=== PATIENT | male | born 1955 | race African-American/Black ===

== ENCOUNTER 2022-10-18 15:36 | Inpatient (IN) | payer MEDICARE, MEDICAID ==
[~2022-10-18] VITALS: Ht 170.2 cm; Wt 55.6 kg
[~2022-10-18 15:36] MED LIST: AMLO10TA55 PO; ASPI-1444 PO; CLOP75TA32 PO; LISI20TA PO; MELO-381 PO; METO-558 PO; SIMV-43 PO; SITA100 PO
[2022-10-18] MEDS ORDERED: NIFE-129 PO (16:06)
[2022-10-18] MEDS ORDERED: NALO4SPR NASAL (16:06)
[2022-10-18] MEDS ORDERED: GABA-529 PO (16:06)
[2022-10-18] MEDS ORDERED: FAMO20 PO (16:06)
[2022-10-18] MEDS ORDERED: HYDR-4069 PO (16:06)
[2022-10-18] MEDS ORDERED: LISI20TA24 PO (16:06)
[2022-10-18 16:51] LABS: BASOPHILS % (AUTO) 0.2 % (0.0-2.0); EOSINOPHILS % (AUTO) 0.1 % (1.0-6.0); HEMATOCRIT 28.5 % (41-53); HEMOGLOBIN 8.8 g/dL (13.5-17.5); LYMPHOCYTES # (AUTO) 0.8 K/uL (1.0-4.8); LYMPHOCYTES % (AUTO) 18.9 % (22.0-44.0); MEAN CORPUSCULAR HEMOGLOBIN 30.7 pg (26.0-34.0); MEAN CORPUSCULAR HGB CONC 30.8 G/dL (31.0-37.0); MEAN CORPUSCULAR VOLUME 99 fL (80-100); MONOCYTES # (AUTO) 0.3 K/uL (0.1-1.0); MONOCYTES % (AUTO) 6.2 % (2.0-9.0); NEUTROPHILS # (AUTO) 3.3 K/uL (1.8-7.7); NEUTROPHILS % (AUTO) 74.6 % (40.0-70.0); PLATELET COUNT (AUTO) 159 K/uL (150-450); RED BLOOD CELL COUNT(AUTO) 2.86 MIL/uL (4.50-5.90); RED CELL DISTRIBUTION WIDTH 13.9 % (11.5-14.5)
[2022-10-18 16:59] LABS: COVID AG,FIA SOURCE NASOPHARYNGEAL
[2022-10-18 17:00] LABS: B-TYPE NATRIURETIC PEPTIDE 5 pg/mL (0-100)
[2022-10-18] MEDS ORDERED: SODIUM CHLORIDE 0.9% 1,000 ML IV ONE (17:00)
[2022-10-18 17:01] LABS: ANION GAP 25 mmol/L (8-16); CALCIUM, TOTAL 8.3 mg/dL (8.8-10.5); CARBON DIOXIDE 17 mmol/L (22-29); CHLORIDE 106 mmol/L (98-107); CREATININE 3.51 mg/dL (0.60-1.30); GLOMERULAR FILTR. RATE CALC 21 mL/min (>60); GLUCOSE,RANDOM 200 mg/dL (70-110); SODIUM SERUM 148 mmol/L (136-145); UREA NITROGEN, BLOOD 74 mg/dL (7-18)
[2022-10-18 17:15] LABS: ALANINE AMINOTRANSFERASE 39 U/L (12-78); ALBUMIN 2.5 g/dL (3.4-5.0); ALKALINE PHOSPHATASE 40 U/L (46-116); ASPARTATE AMINOTRANSFERASE 46 U/L (15-37); BILIRUBIN,TOTAL 0.3 mg/dL (0.1-1.0); LIPASE 72 U/L (73-393); TOTAL PROTEIN, SERUM 5.3 g/dL (6.4-8.2)
[2022-10-18] MEDS ORDERED: SODIUM CHLORIDE 0.9% 500 ML IV ONE (17:15)
[2022-10-18 17:17] LABS: AMMONIA 43 umol/L (11-32)
[2022-10-18 17:21] LABS: LACTIC ACID 12.7 mmol/L (0.4-2.0)
[2022-10-18] MEDS ORDERED: NOREPINEPHRINE 8 MG/D5%-WATER 250 ML IV PRN (17:45)
[2022-10-18] MEDS ORDERED: HYDROmorphone HCL 2 MG/ML SYRINGE IVP ONE ×2 (17:45)
[2022-10-18] MEDS ORDERED: ONDANSETRON HCL 4 MG/2 ML VIAL IVP ONE (17:45)
[2022-10-18 18:57] LABS: INR 1.2 (0.9-1.1); PROTHROMBIN TIME 12.2 SEC (9.4-11.6)
[2022-10-18 19:03] LABS: APPEARANCE,URINE HAZY (CLEAR); BILIRUBIN,URINE NEGATIVE (NEGATIVE); GLUCOSE, URINE (UA) NEGATIVE (NEGATIVE); KETONES,URINE NEGATIVE (NEGATIVE); LEUKOCYTE ESTERASE ,URINE NEGATIVE (NEGATIVE); NITRATE,URINE NEGATIVE (NEGATIVE); OCCULT BLOOD,URINE SMALL (NEGATIVE); PH,URINE 5.5 (5.0-8.0); PROTEIN,URINE 30-70 mg/dL (NEGATIVE); SPECIFIC GRAVITIY, URINE 1.023 (1.003-1.030)
[2022-10-18 19:08] LABS: AMPHET/METH SCREEN,URINE NEGATIVE (NEGATIVE); BARBITURATE SCREEN, URINE NEGATIVE (NEGATIVE); BENZODIAZEPINES SCREEN,URINE NEGATIVE (NEGATIVE); CANNABINOID SCREEN,URINE NEGATIVE (NEGATIVE); COCAINE SCREEN,URINE NEGATIVE (NEGATIVE); METHADONE SCREEN, URINE NEGATIVE (NEGATIVE); OPIATE SCREEN,URINE POSITIVE (NEGATIVE); PHENCYCLIDINE SCREEN,URINE NEGATIVE (NEGATIVE)
[2022-10-18 19:19] LABS: BACTERIA,URINE None Seen /HPF (None Seen); RBC,URINE 0-2 /HPF (0-2); SQUAMOUS EPITHELIAL CELL,UR None Seen /LPF (None Seen); WBC,URINE None Seen /HPF (0-5)
[2022-10-18] MEDS ORDERED: BISACODYL 10 MG RECTAL RECTAL SUPPOSITORY PR PRN (22:30)
[2022-10-18] MEDS ORDERED: MAGNESIUM HYDROXIDE SUSPENSION 30 ML UDCUP PO PRN (22:30)
[2022-10-18] MEDS ORDERED: ALBUTEROL SULFATE 2.5 MG/0.5 ML NEB SOLUTION NEB PRN (22:30)
[2022-10-18] MEDS ORDERED: IPRATROPIUM BROMIDE 0.5 MG/2.5 ML NEB SOLUTION NEB PRN (22:30)
[2022-10-18] MEDS ORDERED: *CLINICAL-LEVOFLOXACIN IVPB DOSING CLINICAL ONE (22:30)
[2022-10-18] MEDS ORDERED: ACETAMINOPHEN 325 MG TABLET PO PRN (22:30)
[2022-10-18] MEDS ORDERED: ZOLPIDEM TARTRATE 5 MG TABLET PO PRN (22:30)
[2022-10-18] MEDS ORDERED: ONDANSETRON HCL 4 MG/2 ML VIAL IVP PRN (22:30)
[2022-10-18] MEDS ORDERED: VANCOMYCIN HCL 1 GM in DEXTROSE 5%-WATER 250 ML IV PRN (23:00)
[2022-10-18] MEDS: SODIUM CHLORIDE 0.45% 1,000 ML IV SCH (23:29)
[2022-10-18] MEDS ORDERED: VANCOMYCIN 1GM/WATER(PEG/NADA) 200 ML IV ONE (23:30)
[2022-10-18] MEDS ORDERED: LEVOFLOXACIN 750 MG/D5% WATER 150 ML IV ONE (23:30)
[2022-10-18] MEDS ORDERED: SODIUM CHLORIDE 0.9% 250 ML IV ONE (23:48)
[2022-10-19] VITALS: BP 96/63
[2022-10-19] MEDS: HEPARIN SODIUM,PORCINE 5,000 UNITS/ML VIAL SQ SCH ×3 (00:50→17:17)
[2022-10-19 04:00] VITALS: BP 120/63
[2022-10-19] MEDS: HYDROCODONE/ACETAMINOPHEN 5-325 MG TABLET PO PRN ×2 (05:47→20:53)
[2022-10-19 07:26] LABS: GLUCOSE,POINT OF CARE 201 MG/DL (70-110)
[2022-10-19 07:57] LABS: CREATININE 3.86 mg/dL (0.60-1.30); POTASSIUM 4.5 mmol/L (3.5-5.1)
[2022-10-19 08:00] VITALS: BP 158/84
[2022-10-19 08:01] LABS: MAGNESIUM 2.1 mg/dL (1.80-2.40); PHOSPHORUS 5.2 mg/dL (2.5-4.9)
[2022-10-19 08:02] LABS: BASOPHILS % (AUTO) 0.1 % (0.0-2.0); EOSINOPHILS % (AUTO) 0.2 % (1.0-6.0); HEMATOCRIT 30.8 % (41-53); HEMOGLOBIN 10.3 g/dL (13.5-17.5); LYMPHOCYTES # (AUTO) 0.8 K/uL (1.0-4.8); LYMPHOCYTES % (AUTO) 21.4 % (22.0-44.0); MEAN CORPUSCULAR HEMOGLOBIN 31.7 pg (26.0-34.0); MEAN CORPUSCULAR HGB CONC 33.4 G/dL (31.0-37.0); MEAN CORPUSCULAR VOLUME 95 fL (80-100); MONOCYTES # (AUTO) 0.7 K/uL (0.1-1.0); MONOCYTES % (AUTO) 17.4 % (2.0-9.0); NEUTROPHILS # (AUTO) 2.3 K/uL (1.8-7.7); NEUTROPHILS % (AUTO) 60.9 % (40.0-70.0); PLATELET COUNT (AUTO) 177 K/uL (150-450); RED BLOOD CELL COUNT(AUTO) 3.25 MIL/uL (4.50-5.90); RED CELL DISTRIBUTION WIDTH 13.1 % (11.5-14.5)
[2022-10-19] MEDS: DOCUSATE SODIUM 100 MG CAPSULE PO SCH ×2 (08:24→20:51)
[2022-10-19] MEDS: PANTOPRAZOLE SODIUM 40 MG/VIAL IVP SCH ×2 (08:25→20:50)
[2022-10-19] MEDS ORDERED: PANTOPRAZOLE SODIUM 40 MG/VIAL IVP SCH (09:00)
[2022-10-19] MEDS ORDERED: NOREPINEPHRINE 8 MG/D5%-WATER 250 ML IV ONE (09:47)
[2022-10-19] MEDS: NOREPINEPHRINE 8 MG/D5%-WATER 250 ML IV PRN ×2 (09:51→23:28)
[2022-10-19] MEDS: SODIUM CHLORIDE 0.45% 1,000 ML IV SCH ×2 (10:41→20:51)
[2022-10-19 12:00] VITALS: BP 134/73
[2022-10-19 18:25] VITALS: BP 106/62
[2022-10-19 23:48] LABS: APPEARANCE,URINE HAZY (CLEAR); BILIRUBIN,URINE NEGATIVE (NEGATIVE); GLUCOSE, URINE (UA) NEGATIVE (NEGATIVE); KETONES,URINE NEGATIVE (NEGATIVE); LEUKOCYTE ESTERASE ,URINE TRACE (NEGATIVE); NITRATE,URINE NEGATIVE (NEGATIVE); OCCULT BLOOD,URINE LARGE (NEGATIVE); PROTEIN,URINE TRACE mg/dL (NEGATIVE); SPECIFIC GRAVITIY, URINE 1.011 (1.003-1.030); UROBILINOGEN,URINE <=1.0 mg/dL (<=1.0)
[2022-10-20] VITALS (7 sets, daily range): BP systolic 105–127; BP diastolic 52–68
[2022-10-20 00:55] LABS: AMORPHOUS SEDIMENT,UR Few /LPF (None Seen); BACTERIA,URINE None Seen /HPF (None Seen); SQUAMOUS EPITHELIAL CELL,UR Few /LPF (None Seen); WBC,URINE 0-2 /HPF (0-5)
[2022-10-20] MEDS ORDERED: SODIUM CHLORIDE 0.9% 250 ML IV ONE (04:50)
[2022-10-20] MEDS: MORPHINE SULFATE 2 MG/ML SYRINGE IVP PRN ×4 (06:05→17:11)
[2022-10-20 06:06] LABS: HEPATITIS C AB (EIA) >11.0 s/co ratio (0.0-0.9)
[2022-10-20 06:28] LABS: CALCIUM, TOTAL 7.9 mg/dL (8.8-10.5); MAGNESIUM 1.8 mg/dL (1.80-2.40); PHOSPHORUS 4.1 mg/dL (2.5-4.9); POTASSIUM 3.9 mmol/L (3.5-5.1); VANCOMYCIN,RANDOM 9.4 mcg/mL (25.0-50.0)
[2022-10-20 07:16] LABS: GLUCOSE,POINT OF CARE 131 MG/DL (70-110)
[2022-10-20 07:16] LABS: GLUCOSE,POINT OF CARE 124 MG/DL (70-110)
[2022-10-20] MEDS ORDERED: ALBUMIN HUMAN 5%-12.5GM/250ML 250 ML IV ONE (08:45)
[2022-10-20] MEDS ORDERED: VANCOMYCIN 1GM/WATER(PEG/NADA) 200 ML IV ONE (09:00)
[2022-10-20] MEDS: SODIUM CHLORIDE 0.45% 1,000 ML IV SCH ×2 (09:09→17:10)
[2022-10-20] MEDS: DOCUSATE SODIUM 100 MG CAPSULE PO SCH ×2 (09:10→21:41)
[2022-10-20] MEDS: HEPARIN SODIUM,PORCINE 5,000 UNITS/ML VIAL SQ SCH ×3 (09:10→17:10)
[2022-10-20] MEDS: PANTOPRAZOLE SODIUM 40 MG/VIAL IVP SCH ×2 (09:10→21:41)
[2022-10-20] MEDS: NOREPINEPHRINE 8 MG/D5%-WATER 250 ML IV PRN (09:11)
[2022-10-20 17:48] LABS: CREATININE,URINE RANDOM 47.2 mg/dL (30.0-125.0); SODIUM,URINE RANDOM 40 mmol/l (20-110); UREA NITROGEN,URINE RANDOM 619 mg/dL (350-1000)
[2022-10-20 19:44] LABS: CREATININE 3.52 mg/dL (0.60-1.30)
[2022-10-20 20:21] LABS: GLUCOSE,POINT OF CARE 93 MG/DL (70-110)
[2022-10-20] MEDS ORDERED: LEVOFLOXACIN 500 MG/D5% WATER 100 ML IV SCH (23:00)
[2022-10-21] VITALS: BP 108/56
[2022-10-21] MEDS: HEPARIN SODIUM,PORCINE 5,000 UNITS/ML VIAL SQ SCH ×4 (00:39→23:33)
[2022-10-21] MEDS: SODIUM CHLORIDE 0.45% 1,000 ML IV SCH ×2 (00:40→08:28)
[2022-10-21 04:00] VITALS: BP 148/65
[2022-10-21 05:36] LABS: BASOPHILS % (AUTO) 0.3 % (0.0-2.0); EOSINOPHILS % (AUTO) 1.9 % (1.0-6.0); HEMATOCRIT 25.9 % (41-53); HEMOGLOBIN 8.6 g/dL (13.5-17.5); LYMPHOCYTES # (AUTO) 0.6 K/uL (1.0-4.8); LYMPHOCYTES % (AUTO) 16.3 % (22.0-44.0); MEAN CORPUSCULAR HEMOGLOBIN 31.1 pg (26.0-34.0); MEAN CORPUSCULAR HGB CONC 33.2 G/dL (31.0-37.0); MEAN CORPUSCULAR VOLUME 94 fL (80-100); MONOCYTES # (AUTO) 0.3 K/uL (0.1-1.0); MONOCYTES % (AUTO) 9.4 % (2.0-9.0); NEUTROPHILS # (AUTO) 2.6 K/uL (1.8-7.7); NEUTROPHILS % (AUTO) 72.1 % (40.0-70.0); PLATELET COUNT (AUTO) 130 K/uL (150-450); RED BLOOD CELL COUNT(AUTO) 2.76 MIL/uL (4.50-5.90)
[2022-10-21 05:41] LABS: GLUCOSE,POINT OF CARE 77 MG/DL (70-110)
[2022-10-21 05:56] LABS: CREATININE 3.18 mg/dL (0.60-1.30); MAGNESIUM 1.6 mg/dL (1.80-2.40); PHOSPHORUS 2.6 mg/dL (2.5-4.9); POTASSIUM 3.6 mmol/L (3.5-5.1)
[2022-10-21 08:00] VITALS: BP 127/70
[2022-10-21] MEDS: PANTOPRAZOLE SODIUM 40 MG/VIAL IVP SCH ×2 (08:27→20:04)
[2022-10-21] MEDS: DOCUSATE SODIUM 100 MG CAPSULE PO SCH ×2 (08:28→20:04)
[2022-10-21] MEDS: ETHYL ALCOHOL 62% ANTISEPTIC NASAL SANITIZER 0.6 ML AMPUL NASAL SCH ×2 (08:28→20:04)
[2022-10-21] MEDS: MORPHINE SULFATE 2 MG/ML SYRINGE IVP PRN (08:29)
[2022-10-21] MEDS: DEXTROSE 5%-0.45% SODIUM CHL 1,000 ML IV SCH ×3 (10:45→22:02)
[2022-10-21 12:00] VITALS: BP 132/72
[2022-10-21] MEDS ORDERED: *CLINICAL-TOTAL PARENTERAL NUTRITION DOSING CLINICAL ONE (12:15)
[2022-10-21 16:00] VITALS: BP 116/60
[2022-10-21 20:00] VITALS: BP 119/61
[2022-10-21 20:21] LABS: GLUCOSE,POINT OF CARE 85 MG/DL (70-110)
[2022-10-21] MEDS ORDERED: DEXTROSE 50%-WATER 25 GM/50 ML SYRINGE IVP PRN (22:00)
[2022-10-21] MEDS ORDERED: TPN SOLUTION 1 EA, SODIUM CHLORIDE 70 MEQ, SODIUM PHOS,M-BASIC-D-BASIC 30 MEQ, POTASSIU... IV SCH ×10 (22:00)
[2022-10-21 22:51] LABS: GLUCOSE,POINT OF CARE 80 MG/DL (70-110)
[2022-10-22] VITALS: BP 105/63
[2022-10-22] MEDS: MORPHINE SULFATE 2 MG/ML SYRINGE IVP PRN ×2 (00:01→03:58)
[2022-10-22 04:06] LABS: GLUCOSE,POINT OF CARE 86 MG/DL (70-110)
[2022-10-22 04:27] VITALS: BP 144/73
[2022-10-22 05:41] LABS: GLUCOSE,POINT OF CARE 103 MG/DL (70-110)
[2022-10-22 05:55] LABS: CALCIUM, TOTAL 7.9 mg/dL (8.8-10.5); CREATININE 2.23 mg/dL (0.60-1.30); MAGNESIUM 1.5 mg/dL (1.80-2.40); PHOSPHORUS 2.4 mg/dL (2.5-4.9); POTASSIUM 3.4 mmol/L (3.5-5.1); VANCOMYCIN,RANDOM 8.9 mcg/mL (25.0-50.0)
[2022-10-22 08:01] VITALS: BP 140/77
[2022-10-22] MEDS: HEPARIN SODIUM,PORCINE 5,000 UNITS/ML VIAL SQ SCH ×2 (08:32→16:45)
[2022-10-22] MEDS: PANTOPRAZOLE SODIUM 40 MG/VIAL IVP SCH ×2 (08:32→20:56)
[2022-10-22] MEDS: DOCUSATE SODIUM 100 MG CAPSULE PO SCH ×2 (08:32→20:58)
[2022-10-22] MEDS: ETHYL ALCOHOL 62% ANTISEPTIC NASAL SANITIZER 0.6 ML AMPUL NASAL SCH ×2 (08:33→21:07)
[2022-10-22] MEDS: HYDROCODONE/ACETAMINOPHEN 5-325 MG TABLET PO PRN ×2 (08:33→20:56)
[2022-10-22] MEDS ORDERED: VANCOMYCIN HCL 1 GM/D5% WATER 200 ML IV ONE (09:00)
[2022-10-22] MEDS: DEXTROSE 5%-0.45% SODIUM CHL 1,000 ML IV SCH ×2 (09:46→21:07)
[2022-10-22] MEDS ORDERED: SODIUM PHOS,M-BASIC-D-BASIC 20 MMOL in DEXTROSE 5%-WATER 150 ML IV ONE (10:15)
[2022-10-22] MEDS ORDERED: MAGNESIUM SULFATE 3 GM in DEXTROSE 5%-WATER 100 ML IV ONE (10:15)
[2022-10-22 10:21] LABS: GLUCOSE,POINT OF CARE 88 MG/DL (70-110)
[2022-10-22 11:54] VITALS: BP 131/69
[2022-10-22] MEDS ORDERED: SODIUM CHLORIDE 0.9% 250 ML IV ONE (11:57)
[2022-10-22] MEDS ORDERED: VANCOMYCIN 1GM/WATER(PEG/NADA) 200 ML IV ONE (12:00)
[2022-10-22] MEDS ORDERED: VANCOMYCIN 1GM/WATER(PEG/NADA) 200 ML IV PRN (14:30)
[2022-10-22] MEDS: FAT EMULSIONS 20% 100 ML IV SCH (14:44)
[2022-10-22 15:49] VITALS: BP 142/72
[2022-10-22 18:06] LABS: HEPATITIS C RT-PCR,QNT 965000 IU/mL
[2022-10-22 20:14] VITALS: BP 163/82
[2022-10-22] MEDS: INSULIN REGULAR, HUMAN 100 UNITS/ML SQ PRN (21:09)
[2022-10-22] MEDS ORDERED: SODIUM CHLORIDE IV SCH ×11 (22:00)
[2022-10-22] MEDS ORDERED: SODIUM PHOS M BASIC D BASIC IV SCH ×11 (22:00)
[2022-10-22] MEDS ORDERED: [UNRECOGNIZED DRUG - OTHER] IV SCH ×11 (22:00)
[2022-10-22] MEDS ORDERED: TPN IV SCH ×11 (22:00)
[2022-10-22] MEDS: LEVOFLOXACIN 750 MG/D5% WATER 150 ML IV SCH (23:59)
[2022-10-23 00:25] VITALS: BP 128/80
[2022-10-23 04:54] VITALS: BP 150/81
[2022-10-23 05:57] LABS: GLUCOMETER DEV NAME(LOC) 5S.2B; GLUCOSE,POINT OF CARE 109 MG/DL (70-110)
[2022-10-23] MEDS: HYDROCODONE/ACETAMINOPHEN 5-325 MG TABLET PO PRN ×2 (06:34→20:23)
[2022-10-23 07:04] LABS: BASOPHILS % (AUTO) 0.2 % (0.0-2.0); LYMPHOCYTES # (AUTO) 0.7 K/uL (1.0-4.8); LYMPHOCYTES % (AUTO) 20.6 % (22.0-44.0); MEAN CORPUSCULAR HEMOGLOBIN 31.1 pg (26.0-34.0); MEAN CORPUSCULAR HGB CONC 33.6 G/dL (31.0-37.0); MEAN CORPUSCULAR VOLUME 93 fL (80-100); MONOCYTES # (AUTO) 0.4 K/uL (0.1-1.0); NEUTROPHILS # (AUTO) 2.3 K/uL (1.8-7.7); NEUTROPHILS % (AUTO) 66.2 % (40.0-70.0); PLATELET COUNT (AUTO) 143 K/uL (150-450); RED BLOOD CELL COUNT(AUTO) 2.59 MIL/uL (4.50-5.90); RED CELL DISTRIBUTION WIDTH 12.9 % (11.5-14.5)
[2022-10-23 07:24] LABS: CALCIUM, TOTAL 7.8 mg/dL (8.8-10.5); CREATININE 1.92 mg/dL (0.60-1.30); PHOSPHORUS 2.8 mg/dL (2.5-4.9); POTASSIUM 3.4 mmol/L (3.5-5.1)
[2022-10-23 08:16] LABS: GLUCOMETER DEV NAME(LOC) 5S.1B; GLUCOSE,POINT OF CARE 92 MG/DL (70-110)
[2022-10-23 08:20] VITALS: BP 143/69
[2022-10-23] MEDS: PANTOPRAZOLE SODIUM 40 MG/VIAL IVP SCH ×2 (08:28→20:17)
[2022-10-23] MEDS: DEXTROSE 5%-0.45% SODIUM CHL 1,000 ML IV SCH ×2 (08:29→23:24)
[2022-10-23] MEDS: ETHYL ALCOHOL 62% ANTISEPTIC NASAL SANITIZER 0.6 ML AMPUL NASAL SCH ×2 (08:29→20:17)
[2022-10-23] MEDS: DOCUSATE SODIUM 100 MG CAPSULE PO SCH ×2 (08:29→20:17)
[2022-10-23] MEDS: MORPHINE SULFATE 2 MG/ML SYRINGE IVP PRN ×2 (08:29→15:28)
[2022-10-23] MEDS: HEPARIN SODIUM,PORCINE 5,000 UNITS/ML VIAL SQ SCH ×4 (08:29→23:25)
[2022-10-23] MEDS ORDERED: VANCOMYCIN HCL 750 MG in DEXTROSE 5%-WATER 250 ML IV ONE (09:00)
[2022-10-23] MEDS: FAT EMULSIONS 20% 100 ML IV SCH (09:15)
[2022-10-23 11:42] LABS: GLUCOMETER DEV NAME(LOC) 5N.1C; GLUCOSE,POINT OF CARE 170 MG/DL (70-110)
[2022-10-23] MEDS ORDERED: SODIUM CHLORIDE 0.9% 250 ML IV ONE (11:56)
[2022-10-23] MEDS: POTASSIUM CHL 10 MEQ/WATER 50 ML IV SCH ×2 (11:59→20:22)
[2022-10-23 12:17] VITALS: BP 140/75
[2022-10-23] MEDS ORDERED: POTASSIUM CHL 10 MEQ/WATER 50 ML IV SCH (12:45)
[2022-10-23 15:23] VITALS: BP 135/76
[2022-10-23 19:22] VITALS: BP 144/83
[2022-10-23] MEDS: INSULIN REGULAR, HUMAN 100 UNITS/ML SQ PRN (20:32)
[2022-10-23] MEDS ORDERED: SODIUM CHLORIDE IV SCH ×10 (22:00)
[2022-10-23] MEDS ORDERED: [UNRECOGNIZED DRUG - OTHER] IV SCH ×10 (22:00)
[2022-10-23] MEDS ORDERED: SODIUM PHOS M BASIC D BASIC IV SCH ×10 (22:00)
[2022-10-23] MEDS ORDERED: TPN IV SCH ×10 (22:00)
[2022-10-24 00:07] VITALS: BP 125/59
[2022-10-24 00:26] LABS: GLUCOMETER DEV NAME(LOC) 5N.1C; GLUCOSE,POINT OF CARE 121 MG/DL (70-110)
[2022-10-24 01:51] LABS: GLUCOMETER DEV NAME(LOC) 5S.2B; GLUCOSE,POINT OF CARE 118 MG/DL (70-110)
[2022-10-24 01:51] LABS: GLUCOMETER DEV NAME(LOC) 5S.2B; GLUCOSE,POINT OF CARE 70 MG/DL (70-110)
[2022-10-24] MEDS: MORPHINE SULFATE 2 MG/ML SYRINGE IVP PRN (04:19)
[2022-10-24 05:00] VITALS: BP 135/85
[2022-10-24 06:56] LABS: GLUCOMETER DEV NAME(LOC) 5S.2B; GLUCOSE,POINT OF CARE 107 MG/DL (70-110)
[2022-10-24 08:07] VITALS: BP 116/71
[2022-10-24] MEDS: DEXTROSE 5%-0.45% SODIUM CHL 1,000 ML IV SCH ×2 (08:50→20:36)
[2022-10-24] MEDS: VANCOMYCIN HCL 750 MG in DEXTROSE 5%-WATER 250 ML IV SCH (08:58)
[2022-10-24] MEDS: HEPARIN SODIUM,PORCINE 5,000 UNITS/ML VIAL SQ SCH ×2 (08:59→16:00)
[2022-10-24] MEDS: PANTOPRAZOLE SODIUM 40 MG/VIAL IVP SCH ×2 (08:59→21:58)
[2022-10-24] MEDS: DOCUSATE SODIUM 100 MG CAPSULE PO SCH ×2 (08:59→21:58)
[2022-10-24] MEDS: HYDROCODONE/ACETAMINOPHEN 5-325 MG TABLET PO PRN ×2 (09:00→15:01)
[2022-10-24] MEDS: ETHYL ALCOHOL 62% ANTISEPTIC NASAL SANITIZER 0.6 ML AMPUL NASAL SCH ×2 (09:17→21:58)
[2022-10-24] MEDS: FAT EMULSIONS 20% 100 ML IV SCH (10:00)
[2022-10-24 11:44] VITALS: BP 138/76
[2022-10-24] MEDS ORDERED: BISA10SU11 PR (11:48)
[2022-10-24] MEDS ORDERED: POLY17PO20 PO (11:48)
[2022-10-24 12:06] LABS: GLUCOMETER DEV NAME(LOC) 5N.1C; GLUCOSE,POINT OF CARE 126 MG/DL (70-110)
[2022-10-24 16:00] VITALS: BP 138/76
[2022-10-24 20:20] VITALS: BP 125/74
[2022-10-24] MEDS: LEVOFLOXACIN 750 MG/D5% WATER 150 ML IV SCH (23:59)
[2022-10-25 00:34] VITALS: BP 145/81
[2022-10-25] MEDS: HYDROCODONE/ACETAMINOPHEN 5-325 MG TABLET PO PRN ×3 (01:40→10:25)
[2022-10-25 05:22] VITALS: BP 149/81
[2022-10-25 07:16] LABS: CALCIUM, TOTAL 8.2 mg/dL (8.8-10.5); CREATININE 2.03 mg/dL (0.60-1.30); MAGNESIUM 1.9 mg/dL (1.80-2.40); PHOSPHORUS 2.5 mg/dL (2.5-4.9); POTASSIUM 4.7 mmol/L (3.5-5.1); VANCOMYCIN,RANDOM 16.1 mcg/mL (25.0-50.0)
[2022-10-25 07:17] LABS: GLUCOMETER DEV NAME(LOC) 5S.2B; GLUCOSE,POINT OF CARE 63 MG/DL (70-110)
[2022-10-25 08:19] VITALS: BP 136/86
[2022-10-25] MEDS: DEXTROSE 5%-0.45% SODIUM CHL 1,000 ML IV SCH (08:22)
[2022-10-25] MEDS: DOCUSATE SODIUM 100 MG CAPSULE PO SCH (08:25)
[2022-10-25] MEDS: VANCOMYCIN HCL 750 MG in DEXTROSE 5%-WATER 250 ML IV SCH (08:26)
[2022-10-25] MEDS: PANTOPRAZOLE SODIUM 40 MG/VIAL IVP SCH (08:26)
[2022-10-25] MEDS: HEPARIN SODIUM,PORCINE 5,000 UNITS/ML VIAL SQ SCH ×2 (08:26)
[2022-10-25] MEDS: ETHYL ALCOHOL 62% ANTISEPTIC NASAL SANITIZER 0.6 ML AMPUL NASAL SCH (08:27)
[2022-10-26 02:11] LABS: GLUCOMETER DEV NAME(LOC) 5S.1B; GLUCOSE,POINT OF CARE 107 MG/DL (70-110)
[2022-10-26 02:11] LABS: GLUCOMETER DEV NAME(LOC) 5S.1B; GLUCOSE,POINT OF CARE 182 MG/DL (70-110)
[2022-10-26 03:31] LABS: GLUCOMETER DEV NAME(LOC) 5N.1C; GLUCOSE,POINT OF CARE 108 MG/DL (70-110)
== END 2022-10-25 10:40 | disposition home health service (06) | DRG 871 ==
LOC: EMS 15:37 → ICU 21:01 → 5S 10-22 06:20
PROVIDERS: ADMIT Hospitalist; ATTEND Hospitalist
PROC: 05HM33Z Insertion of Infusion Device into Right Internal Jugular Vein, Percutaneous Approach (ICD-10-PCS; principal; 2022-10-18)
PROC: B543ZZA Ultrasonography of Right Jugular Veins, Guidance (ICD-10-PCS; 2022-10-18)
DX: A41.9 Sepsis, unspecified organism (principal); E43 Unspecified severe protein-calorie malnutrition; N17.0 Acute kidney failure with tubular necrosis; J18.9 Pneumonia, unspecified organism; I21.A1 Myocardial infarction type 2; E87.0 Hyperosmolality and hypernatremia; E87.20 Acidosis, unspecified; K56.609 Unspecified intestinal obstruction, unspecified as to partial versus complete obstruction; K56.7 Ileus, unspecified; I69.354 Hemiplegia and hemiparesis following cerebral infarction affecting left non-dominant side; E11.22 Type 2 diabetes mellitus with diabetic chronic kidney disease; E78.5 Hyperlipidemia, unspecified; E87.6 Hypokalemia; I12.9 Hypertensive chronic kidney disease with stage 1 through stage 4 chronic kidney disease, or unspecified chronic kidney disease; K21.9 Gastro-esophageal reflux disease without esophagitis; N18.9 Chronic kidney disease, unspecified; G89.29 Other chronic pain; Z79.82 Long term (current) use of aspirin; Z79.899 Other long term (current) drug therapy; Z79.84 Long term (current) use of oral hypoglycemic drugs; Z82.49 Family history of ischemic heart disease and other diseases of the circulatory system; Z88.0 Allergy status to penicillin; Z88.6 Allergy status to analgesic agent; Z88.8 Allergy status to other drugs, medicaments and biological substances; Z90.49 Acquired absence of other specified parts of digestive tract
CPT/HCPCS: 51702; 70450; 71045; 71250; 72192; 74018; 74150; 76700; 76770; 80048; 80053; 80202; 80307; 81001; 82140; 82271; 82565; 82570; 82962; 83605; 83690; 83735; 83880; 84100; 84134; 84300; 84478; 84484; 84520; 84540; 85025; 85610; 86803; 86850; 86900; 86901; 87040; 87081; 87340; 87522; 93005; 93306; 97163; 97166; 97535; 99291; C9113; G0378; G0480; J0610; J1170; J1644; J1956; J2270; J2405; J3370; J3475; J3480; J3490; J7050; J7060; J7070; J7131; P9041; Q9967; 36415-L1; 36415-TC; X7700

== ENCOUNTER 2022-10-25 17:53 | Inpatient (IN) | payer MEDICARE, MEDICAID ==
[~2022-10-25] VITALS: Ht 170.2 cm; Wt 55.6 kg
[~2022-10-25 17:53] MED LIST changes: -AMLO10TA55 PO; +BISA10SU11 PR; -CLOP75TA32 PO; +FAMO20 PO; +GABA-529 PO; -LISI20TA PO; -MELO-381 PO; -METO-558 PO; +NIFE-129 PO; +POLY17PO20 PO
[2022-10-25] MEDS ORDERED: ACETAMINOPHEN 500 MG TABLET PO ONE (21:00)
[2022-10-26 05:14] LABS: COVID AG,FIA SOURCE NASAL SWAB
[2022-10-26 08:04] LABS: CALCIUM, TOTAL 8.4 mg/dL (8.8-10.5); CREATININE 2.04 mg/dL (0.60-1.30); POTASSIUM 4.4 mmol/L (3.5-5.1)
[2022-10-26 08:10] LABS: ALBUMIN 2.2 g/dL (3.4-5.0); BILIRUBIN,TOTAL 0.3 mg/dL (0.1-1.0); TOTAL PROTEIN, SERUM 5.5 g/dL (6.4-8.2)
[2022-10-26] MEDS ORDERED: ACETAMINOPHEN 500 MG TABLET PO ONE (08:45)
[2022-10-26 12:02] LABS: BASOPHILS % (AUTO) 0.5 % (0.0-2.0); EOSINOPHILS % (AUTO) 3.1 % (1.0-6.0); HEMATOCRIT 24.7 % (41-53); HEMOGLOBIN 8.3 g/dL (13.5-17.5); LYMPHOCYTES # (AUTO) 0.8 K/uL (1.0-4.8); LYMPHOCYTES % (AUTO) 15.7 % (22.0-44.0); MEAN CORPUSCULAR HEMOGLOBIN 31.6 pg (26.0-34.0); MEAN CORPUSCULAR HGB CONC 33.5 G/dL (31.0-37.0); MEAN CORPUSCULAR VOLUME 94 fL (80-100); MONOCYTES # (AUTO) 0.3 K/uL (0.1-1.0); MONOCYTES % (AUTO) 5.5 % (2.0-9.0); NEUTROPHILS # (AUTO) 3.8 K/uL (1.8-7.7); NEUTROPHILS % (AUTO) 75.2 % (40.0-70.0); PLATELET COUNT (AUTO) 222 K/uL (150-450); RED BLOOD CELL COUNT(AUTO) 2.62 MIL/uL (4.50-5.90)
[2022-10-26] MEDS ORDERED: ACETAMINOPHEN 325 MG TABLET PO PRN (13:30)
[2022-10-26] MEDS ORDERED: ONDANSETRON HCL 4 MG/2 ML VIAL IVP PRN (13:30)
[2022-10-26] MEDS ORDERED: AmLODIPine BESYLATE 5 MG TABLET PO SCH (13:30)
[2022-10-26] MEDS ORDERED: HEPARIN SODIUM,PORCINE 5,000 UNITS/ML VIAL SQ SCH (16:00)
[2022-10-26] MEDS ORDERED: DEXTROSE 50%-WATER 25 GM/50 ML SYRINGE IVP PRN (16:45)
[2022-10-26] MEDS ORDERED: INSULIN LISPRO 100 UNITS/ML SQ PRN (16:45)
[2022-10-26 17:47] VITALS: BP 150/81
[2022-10-26 18:24] LABS: APPEARANCE,URINE CLEAR (CLEAR); BILIRUBIN,URINE NEGATIVE (NEGATIVE); GLUCOSE, URINE (UA) NEGATIVE (NEGATIVE); KETONES,URINE NEGATIVE (NEGATIVE); LEUKOCYTE ESTERASE ,URINE NEGATIVE (NEGATIVE); NITRATE,URINE NEGATIVE (NEGATIVE); OCCULT BLOOD,URINE NEGATIVE (NEGATIVE); PROTEIN,URINE TRACE mg/dL (NEGATIVE); SPECIFIC GRAVITIY, URINE 1.012 (1.003-1.030); UROBILINOGEN,URINE <=1.0 mg/dL (<=1.0)
[2022-10-26] MEDS ORDERED: DOCUSATE SODIUM 100 MG CAPSULE PO SCH (21:00)
[2022-10-27] MEDS ORDERED: MULTIVITAMINS WITH MINERALS, THERAPEUTIC TABLET PO SCH (09:00)
[2022-10-27] MEDS ORDERED: FAMOTIDINE 20 MG TABLET PO SCH (09:00)
== END 2022-10-26 17:16 | DRG 948 ==
LOC: EMS 17:56 → AHU 10-26 12:20
PROVIDERS: ADMIT Internal Medicine; ATTEND Internal Medicine
DX: R53.81 Other malaise (principal); E44.0 Moderate protein-calorie malnutrition; Z68.1 Body mass index [BMI] 19.9 or less, adult; D63.8 Anemia in other chronic diseases classified elsewhere; I12.9 Hypertensive chronic kidney disease with stage 1 through stage 4 chronic kidney disease, or unspecified chronic kidney disease; E11.22 Type 2 diabetes mellitus with diabetic chronic kidney disease; N18.30 Chronic kidney disease, stage 3 unspecified; Z20.822 Contact with and (suspected) exposure to COVID-19; R26.2 Difficulty in walking, not elsewhere classified; Z82.49 Family history of ischemic heart disease and other diseases of the circulatory system; Z88.0 Allergy status to penicillin; Z79.899 Other long term (current) drug therapy; Z88.6 Allergy status to analgesic agent; Z88.8 Allergy status to other drugs, medicaments and biological substances; Z79.82 Long term (current) use of aspirin
CPT/HCPCS: 80053; 81003; 85025; 99285; G0378; J1644